=== PATIENT | female | born 1985 | race Caucasian/White ===

== ENCOUNTER 2018-03-28 22:37 | Emergency (ER) | payer OTHER ==
[~2018-03-28] VITALS: Ht 149.9 cm; Wt 62.6 kg
[2018-03-28 22:53] VITALS: BP 118/62; Ht 149.9 cm; Wt 62.6 kg
== END 2018-03-28 23:56 | disposition home or self-care (01) ==
LOC: ED 22:37
DX: M54.42 Lumbago with sciatica, left side (principal)
CPT/HCPCS: J1885